=== PATIENT | female | born 1995 | race African-American/Black ===

== ENCOUNTER 2021-03-15 22:20 | Emergency (ER) | payer MEDICAID ==
[~2021-03-15] VITALS: Ht 154.9 cm; Wt 64.0 kg
[~2021-03-15 22:20] MED LIST: AMOX125S12 PO
[2021-03-15 23:40] LABS: CHLORIDE 106 mEq/L (98-107)
[2021-03-15 23:41] LABS: BASOPHILS % 0.8 % (0.0-2.0); EOSINOPHILS % 2.9 % (0.0-5.0); HEMATOCRIT. 39.1 % (36.0-48.0); HEMOGLOBIN. 13.5 g/dL (12.0-16.0); LYMPHOCYTES % 32.1 % (20.0-50.0); MEAN CORPUSCULAR HEMOGLOBIN 34.5 pg (28.0-32.0); MEAN CORPUSCULAR VOLUME 99.6 fL (81.0-99.0); MONOCYTES % 6.2 % (2.0-8.0); PLATELET 159 x1000/uL (130-400); RED BLOOD CELL COUNT 3.92 mill/uL (4.2-5.4); RED CELL DISTRIBUTION WIDTH 11.7 % (11.6-14.6)
[2021-03-15 23:50] LABS: B-HCG QUANTITATIVE < 1 mIU/mL (<3)
[2021-03-15 23:52] LABS: CLARITY URINE CLEAR (CLEAR); COLOR URINE YELLOW (YELLOW); KETONES URINE TRACE (NEGATIVE); LEUKOCYTE ESTERASE URINE NEGATIVE (NEGATIVE); NITRITE URINE NEGATIVE (NEGATIVE); OCCULT BLOOD URINE 3+ (NEGATIVE); PROTEIN URINE NEGATIVE (NEGATIVE); SPECIFIC GRAVITY URINE 1.028 (1.005-1.030)
[2021-03-16] MEDS ORDERED: IBUP-2029 MT (04:20)
[2021-03-16 04:30] VITALS: BP 101/62
== END 2021-03-16 04:35 | disposition home or self-care (01) ==
LOC: ER 22:20
DX: N83.202 Unspecified ovarian cyst, left side (principal); N83.201 Unspecified ovarian cyst, right side
CPT/HCPCS: 36415; 76830; 76856; 80048; 81003; 81025; 84702; 85025; 86850; 86900; 86901; 99285; Z7610